=== PATIENT | female | born 1990 | race Caucasian/White ===

== ENCOUNTER 2023-07-06 07:31 | Inpatient (IN) | payer BC, SELFPAY ==
[2023-07-06] VITALS (134 sets, daily range): BP systolic 102–143; BP diastolic 56–93; PULSE 60–92; RESP 16–18; TEMP 36.4–36.9; O2SAT 89–100; BMI 47.5
[2023-07-06] MEDS: AMPICILLIN 2 GM in 0.9 % SODIUM CHLORIDE Mini-bag 100 ML IVPB (08:55)
[2023-07-06] MEDS: LACTATED RINGERS 1000 ML 1,000 ML 125 ML IV (08:55)
[2023-07-06] MEDS: OXYTOCIN 30 unit/500 ML in NS 30 UNIT/500 ML BAG IVPB (09:30)
[2023-07-06 10:10] LABS: Basophils Absolute Auto 0.01 K/uL (0.00-0.30); Basophils Percent Auto 0.1 % (0.0-3.0); Eosinophils Absolute Auto 0.03 K/uL (0.00-0.50); Eosinophils Percent Auto 0.3 % (0.0-7.0); Hematocrit 38.7 % (33.0-51.0); Hemoglobin* 12.6 gm/dL (12.0-16.0); Immature Granulocytes Abs Auto 0.01 K/uL (0.00-0.30); Immature Granulocytes Pct Auto 0.1 %; Lymphocytes Absolute Auto 2.17 K/uL (0.90-2.90); Lymphocytes Percent Auto 24.7 % (20-44); Mean Corpuscular HGB Conc 33 gm/dL (32-36); Mean Corpuscular Hemoglobin 31 pg (26-34); Mean Corpuscular Volume 95 fL (80-100); Monocytes Percent Auto 5.7 % (0.0-11.0); Neutrophils Absolute Auto 6.08 K/uL (1.7-7.0); Neutrophils Percent Auto 69.1 % (42.0-72.0); Platelet Count* 199 K/uL (140-440); RDW Coefficient of Variation % 12.9 % (11.5-15.5); Red Blood Count 4.09 m/uL (4.00-5.20)
[2023-07-06 10:13] LABS: Slide Review Reflex No
[2023-07-06] MEDS: AMPICILLIN 1 GM in 0.9 % SODIUM CHLORIDE Mini-bag 100 ML IVPB ×2 (13:06→17:13)
--- NOTE | 2023-07-06 14:32 | PM.OBHPLI ---
OB - H&P: HPI Labor/Induction History of Present Illness Date Seen: 07/06/23 Chief Complaint: The patient is a 32 year old 3 para 1011 at 40+4 weeks gestation by LMP and confirmed with first trimester US, who presents for IOL for maternal obesity with BMI 47. Chief complaint: Maternity Narrative: Marissa Landry is a 32 year old at 40+4 weeks by LMP and confirmed with 8 week US here for IOL for maternal obesity. She reports some bloody show since her cervical check on 07/03, but no regular contractions, no leaking fluid and baby has been active. Aside from BMI of 47, has otherwise been uncomplicated. History of Present Dating criteria: based on LMP care: good care Ultrasounds: normal 1st trimester US, normal mid trimester US and other (EFW at 36 weeks 3130g (71%)) Labs Blood type: O (+) positive Rubella: immune RPR/VDLR: nonreactive GBS status: positive HBsAG: negative Review of Systems Status of ROS: Reports: 6 or more systems reviewed and unremarkable except as noted in History and below OB - H&P: Exam Physical Exam: Vital signs: Temp Pulse BP Pulse Ox 98.1 F 84 126/77 100 07/06/23 13:09 07/06/23 13:47 07/06/23 13:47 07/06/23 14:30 Constitutional: Constitutional: no acute distress Routine HEENT Exam: Head: Present atraumatic Eye: Present EOMI and PERRL ENT: Present mucous membranes moist Detailed ENT Exam: Oral mucosa: Present moist Routine Neck Exam: Neck: Present full ROM Routine Respiratory Exam: Respiratory: Present CTA bilaterally Routine Cardiovascular Exam: Cardiovascular: RRR Routine Abdominal Exam: Abdominal: Present soft Comments: non tender Routine Exam: Perineum Description: Normal Detailed Labor and Delivery Exam: Patient Gravid: Yes Dilation (cm): 3 Effacement (%): 70 Cervix position: anterior Consistency: medium Cervical ripeness score: 7 Contraction frequency (min): 2 Tachysystole: No Contraction intensity: Mild Fetus (Single): Station: -1 Amniotic Membrane Status: AROM Amniotic Membrane Fluid Description: Meconium Stained Heart Rate Baseline: 140 Monitor Accelerations: Absent Monitor Decelerations: None Group Home Variability: Moderate (6-25) Routine Skin Exam: Present intact and normal turgor Routine Neurological Exam: Present alert, oriented X3 and CN II-XII intact Routine Psychiatric Exam: Present normal affect and normal thought process OB - Results Labs Labs: Short CBC 07/06/23 Range/Units 10:02 WBC 8.80 (4.50-11.00) K/uL Hgb 12.6 (12.0-16.0) gm/dL Hct 38.7 (33.0-51.0) % Plt Count 199 (140-440) K/uL OB - Problem Based A/P Additional Plan (1) : Status: Acute (2) Obesity: Status: Acute Plan Antibiotics started on arrival for +GBS. Pitocin per protocol with AROM for augmentation. Labor analgesia per patient. Anticipate . Second provider notified to be present for for meconium. Delivery/Labor/Induction Plan Plan: induction Induction method: per pitocin protocol
[2023-07-06] MEDS: LACTATED RINGERS 1000 ML 1,000 ML 119 ML IV ×2 (18:07→19:33)
--- NOTE | 2023-07-06 20:50 | SUR.ANES ---
Prior to being requested for an epidural, I had an extensive discussion with the patient and her partner regarding her prior experience with an epidural. Patient reported it being a difficult and unpleasant experience where 3 levels were attempted by 2 different providers before successful placement. She said the epidural worked well for labor analgesia. Patient reports that since that time she has had random sharp, shooting pain originating around the epidural insertion site. I discussed multiple labor analgesia options and the risks and benefits of each. We discussed it was likely that epidural placement would be technically challenging again given her first experience and upon my physical exam of her back. We discussed early placement of an epidural and that an epidural is an elective procedure that is her choice. Patient would like to start with natural childbirth and use nitrous. Upon being requested for an epidural and obtaining consent, I attempted insertion at 2 different levels without success. Prior to attempting at second level, when pressing on her back with my thumb, patient reported pain below where I had attempted. Decided to move up a level where patient did not report any pain. Patient requested that I stop after the 2nd level attempt. We had a discussion about other options (another provider attempting, ITN, or continuing with natural childbirth and nitrous). Patient decided to proceed with nitrous oxide and natural childbirth.
--- NOTE | 2023-07-06 21:09 | W.PM.VAGDEL1 ---
Procedure Delivery date: 07/06/23 Procedure Done: Global Delivery augmentation: rupture of membranes Delivery monitor: external FHT and external uterine Route of delivery: Laceration description: None Estimated blood loss (mL): 50 Anesthesia type: None Disposition: floor Narrative: The patient is a 32 year-old admitted on 07/06/2023 at 40 Weeks, 4 Days gestation for IOL for maternal obesity.? Cervical exam on admission was 2 cm/70 % effaced/-1 station with membranes intact in vertex presentation.? Contractions were rare.? heart rate demonstrated baseline 150 bpm with moderate variability, + accelerations, - decelerations; a category 1 tracing.?Antibiotics started on arrival for +GBS and pitocin was then started. AROM occurred at 1416 with meconium stained fluid. ? Labor Analgesia:? none ? Pitocin:? yes ? Labor onset:? 1804 ? Complete:? 2041 ? Pushing:? 2041 ? heart tones during second stage were category 2. ? At 2045 a viable female delivered in vertex OA presentation over intact perineum via spontaneous vaginal delivery.? Infant was placed on maternal abdomen.? Cord was clamped and cut quickly after delivery due to poor respiratory effort and meconium. Infant brought to the warmer where she was immediately vigorous.? Nose and mouth were bulb suctioned.? weight pending.? 8 at 1 minute and 9 at 5 minutes.? Shoulder dystocia: no.? Nuchal cord: no. ? Placenta delivered spontaneously and complete at 2050 with a 3 vessel cord. ? Mother and infant were stable after delivery. ? Lacerations:? none. ? Blood loss: 50 mL. Blood loss measurement type: QBL ? Sponge and needles counts are correct. [place] Infant Gender: Female presentation: vertex Placental Delivery Description: Spontaneous Cord Description: 3 Vessels
[2023-07-06] MEDS: IBUPROFEN 600 MG TABLET PO (21:24)
[2023-07-07 03:44] VITALS: BP 119/70; PULSE 71; RESP 18; TEMP 36.6; O2SAT 98
[2023-07-07] MEDS: IBUPROFEN 600 MG TABLET PO ×3 (03:46→19:00)
[2023-07-07] MEDS: ACETAMINOPHEN 500 MG TABLET 1000 MG PO ×3 (03:46→16:52)
[2023-07-07 07:17] LABS: Hemoglobin* 11.4 gm/dL (12.0-16.0)
[2023-07-07 08:00] VITALS: BP 106/71; PULSE 60; RESP 16; TEMP 36.6; O2SAT 98
--- NOTE | 2023-07-07 08:12 | P.OBPN_ITS ---
OB - PN:Subj Subjective Date Seen: 07/07/23 Interval history: Doing fairly well this morning. Did develop headache which she feels was due to multiple epidural attempts. has been reevaluated by anesthesia. feeling better with use of pain medications. No dizziness, vision changes, swelling, RUQ abdominal pain. Feels like bleeding has been appropriate. Working on . OB - PN: Obj Exam Physical Exam: Vital signs: Temp Pulse Resp BP Pulse Ox O2 Del Method 97.9 F 71 18 119/70 98 Room Air 07/07/23 03:44 07/07/23 03:44 07/07/23 03:44 07/07/23 03:44 07/07/23 03:44 07/07/23 03:44 Narrative: Gen: alert, pleasant, NAD Resp: CTA b/l; breathing comfortably on room air Heart: RRR, no murmurs Abd: soft, nontender. fundus is firm. MSK: no LE edema OB - PN: Obj Data Labs Labs: Laboratory Results - last 24 hr 07/06/23 07/07/23 10:02 06:26 WBC 8.80 RBC 4.09 Hgb 12.6 11.4 L Hct 38.7 MCV 95 MCH 31 MCHC 33 RDW Coeff of Elizabeth 12.9 Plt Count 199 Neut % (Auto) 69.1 Lymph % (Auto) 24.7 [place] % (Auto) 5.7 Eos % (Auto) 0.3 Baso % (Auto) 0.1 Neut # (Auto) 6.08 Lymph # (Auto) 2.17 [place] # (Auto) 0.50 Eos # (Auto) 0.03 Baso # (Auto) 0.01 Abs Immat Gran (auto) 0.01 Imm/Tot Granulo (auto) 0.1 Blood Type O Positive Antibody Screen NEGATIVE OB - PN: A/P Delivery Assessment and Plan (1) : Status: Resolved (2) Obesity: Status: Acute Plan day: 1 Plan: routine care Comments: Anticipate discharge home tomorrow. Headache improving with use of analgesics. Blood pressures have been WNL - did have two mildly elevated pressures 1 hour apart yesterday during labor (132/93, 143/73). Low threshold to further evaluate with labs if headaches worsen or blood pressures rise.
--- NOTE | 2023-07-07 09:40 | PM.ANPOST ---
Post Anesthesia Note Post Anesthesia Note Patient seen: Inpatient Respiratory Status: adequate Cardiovascular Status: adequate Mental Status: baseline Pain: adequate (Patient reported a headache overnight that improved with laying down. It has improved since then and is currently a dull ache that does not change with position. Discussed with patient and her provider that is unlikely a spinal headache since we were not able to get into epidural space.) Temp: baseline Anesthetic awareness: N/A Complications: none Follow care: none
[2023-07-07] MEDS: DOCUSATE SODIUM 100 MG CAPSULE PO (10:23)
[2023-07-07 11:23] VITALS: BP 115/79; PULSE 75; RESP 16; TEMP 36.8; O2SAT 99
[2023-07-07] MEDS: OXYCODONE 5 MG TABLET PO (17:35)
[2023-07-07 17:40] VITALS: BP 112/69; PULSE 71; RESP 17; TEMP 36.9; O2SAT 98
[2023-07-07] MEDS: LIDOCAINE 5% PATCH 1 PATCH TRANSDERMA (18:36)
[2023-07-07 20:31] VITALS: BP 138/85; PULSE 81; RESP 16; TEMP 36.4; O2SAT 98
[2023-07-07 21:14] LABS: Hematocrit 37.5 % (33.0-51.0); Hemoglobin* 12.2 gm/dL (12.0-16.0); Mean Corpuscular HGB Conc 33 gm/dL (32-36); Mean Corpuscular Hemoglobin 31 pg (26-34); Mean Corpuscular Volume 95 fL (80-100); Platelet Count* 182 K/uL (140-440); Red Blood Count 3.93 m/uL (4.00-5.20); White Blood Count* 9.45 K/uL (4.50-11.00)
[2023-07-07 21:18] LABS: Slide Review Reflex No
[2023-07-07 21:30] LABS: Alanine Aminotransferase* 23 U/L (4-35); Aspartate Amino Transferase* 29 U/L (12-35); Creatinine* 0.6 mg/dL (0.5-1.5); Est. Creatinine Clearance* 148.26; Estimated Glomerular Filt Rate 124 ml/min
[2023-07-07] MEDS: CYCLOBENZAPRINE HCL 10 MG TABLET PO (21:33)
[2023-07-08 00:47] VITALS: BP 117/81; PULSE 63; RESP 18; TEMP 36.6; O2SAT 98
[2023-07-08 00:57] LABS: Rapid Plasma Reagin (RPR) Non Reactive (Non Reactive)
[2023-07-08] MEDS: ACETAMINOPHEN 500 MG TABLET 1000 MG PO ×2 (01:03→08:57)
[2023-07-08] MEDS: IBUPROFEN 600 MG TABLET PO ×2 (01:04→08:56)
[2023-07-08 02:25] LABS: Total Protein Urine 15 mg/dL
[2023-07-08 02:26] LABS: Creatinine Urine 106.5 mg/dL
[2023-07-08] MEDS: CYCLOBENZAPRINE HCL 10 MG TABLET PO (04:04)
--- NOTE | 2023-07-08 08:16 | P.DS_ITS ---
DS: Providers Provider Date Seen: 07/08/23 Date of admission: 07/06/23 07:31 Primary care physician: Christine Martinez MD Admitting Clinician: Christine Martinez MD Attending Physician on discharge: Christine Martinez MD Date of Discharge: 07/08/23 DS: Diagnosis Discharge Diagnosis (1) Status post normal vaginal delivery: Status: Acute Problem details: Delivered at 40w4d; no tears. (2) Back pain: Status: Acute Exam Narrative: Exam Narrative: Gen: alert, pleasant, NAD Heart: RRR, no murmurs Lungs: CTA b/l MSK: paraspinal muscle tenderness to palpation b/l in thoracic and lumbar spine. Piriformis muscle tenderness to palpation. No saddle anesthesia. Skin: bruising over lumbar spine Const: Vital Signs, click to edit/add: Vital Signs - 24 hr 07/07/23 11:23 07/07/23 17:40 07/07/23 20:31 Temperature 98.3 F 98.4 F 97.5 F L Pulse Rate [Pulse Oximeter] 75 71 81 Respiratory Rate 16 17 16 Blood Pressure [Ri ght Arm] 115/79 112/69 138/85 Pulse Oximetry 99 98 98 Oxygen Delivery Me thod Room Air Room Air Room Air 07/08/23 00:47 Temperature 97.8 F Pulse Rate [Pulse Oximeter] 63 Respiratory Rate 18 Blood Pressure [Ri ght Arm] 117/81 Pulse Oximetry 98 Oxygen Delivery Me thod Room Air OB - DS: Summary Hospital Course Hospital Course: The patient is a 32 year old G 3 P 2 at 40.4 weeks gestation that was admitted to the Center on 07/06/23 for IOL secondary to post-dates . She had an uncomplicated vaginal delivery. She delivered a viable female . She is breast feeding. the patient has struggled with headache and back pain. Pre-eclampsia labs were negative. Back pain thought to be due to unsuccessful attempts at epidural placement and musculoskeletal pain which patient reports she had been struggling with prior to delivery as well. Pain improves with use of ice, Flexeril, and ibuprofen. Peripartum Data delivery method: Vaginal Laceration description: None complications: spinal headache (vs other unspecified headache) Gender: Female Status at Discharge Functional status at discharge: independent ambulation Time Spent with Patient Time attestation: Total time spent providing and/or coordinating discharge services: Time spent: Less than 30 minutes Discharge Plan Discharge Disposition: Home, Self-Care Date of Admission: 07/06/23 07:31 Primary Care Provider: Christine Martinez Condition: Stable Anticipated Discharge Date/Time: 07/08/23 09:04 Discharge Medications: New cyclobenzaprine 10 mg Tablet 10 mg PO TID PRN (Reason: Muscle Pain) Qty: 21 0RF ibuprofen 600 mg Tablet 600 mg PO Q6H PRNQty: 28 0RF Continued docosahexaenoic acid [ DHA] 1 cap PO DAILY Discharge Orders: Discharge Order (Routine); Ordered 07/08/23 Ordered By: Maria Elena Leger Patient Education: Vaginal Delivery (DC), OB Vaginal/Breast Feeding Follow Up Appointments: Christine Martinez MD [Primary Care Provider] - Forms: [employer] Info Instructions Discharge Comments: Follow up for routine post- visit at 6 weeks or sooner if needed for any other concerns
[2023-07-08] MEDS: DOCUSATE SODIUM 100 MG CAPSULE PO (08:57)
[2023-07-08 09:22] VITALS: BP 114/82; PULSE 82; TEMP 36.7; O2SAT 99
== END 2023-07-08 10:43 | disposition home or self-care (01) | DRG 560 ==
PROVIDERS: Family Medicine; Admitting Provider Family Medicine; PCP Family Medicine; Visit Provider Family Medicine
DX: O99.214 Obesity complicating childbirth (principal); E66.9 Obesity, unspecified; O99.824 Streptococcus B carrier state complicating childbirth; O77.0 Labor and delivery complicated by meconium in amniotic fluid; O48.0 Post-term pregnancy; O90.89 Other complications of the puerperium, not elsewhere classified; M54.9 Dorsalgia, unspecified; R51.9 Headache, unspecified; Z3A.40 40 weeks gestation of pregnancy; Z37.0 Single live birth
CPT/HCPCS: 36415; 82565; 82570; 84156; 84450; 84460; 85018; 85025; 85027; 86592; 86850; 86900; 86901; A9270; J0290; J2371; J7120

== ENCOUNTER 2023-09-06 20:06 | Emergency (ER) | payer BC, SELFPAY ==
[2023-09-06 20:12] VITALS: BP 138/86; PULSE 72; RESP 16; TEMP 36.1; O2SAT 100; BMI 41.6
--- NOTE | 2023-09-06 20:58 | ED_ITS ---
HPI - General Adult General Date Seen: 09/06/23 Chief complaint: Vaginal Bleeding Stated complaint: bleeding after giving Time Seen by Provider: 09/06/23 20:43 Source: patient Mode of arrival: ambulatory Limitations: no limitations History of Present Illness HPI narrative: Patient is a 32-year-old female who is nine weeks who presents with vaginal bleeding. She is going through three or four pads per day. She is not passing any large clots but has passed a couple of small clots. 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 Tonight she felt we ak and presyncopal prompting her visit to the ER. She has had no fevers or chills. At her six week visit she was started a progesterone only OCP. She has not missed any days. She is breast-feeding. She does not notice uterine contractions with pumping. She does not breast feed directly. She has been scheduled for a pelvic ultrasound in four days presumably to look for retained placenta. She has had no heavy bleeding and did not have a traumatic or difficult delivery. No issues with delivery of placenta. Related Data Home Medications ?Medication ?Instructions ?Recorded ?Confirmed norethindrone (contraceptive) 0.35 0.35 mg PO DAILY 09/06/23 09/06/23 mg tablet Allergies Allergy/AdvReac Type Severity Reaction Status Date / Time amitriptyline AdvReac Verified 09/06/23 20:17 Review of Systems Narrative: Review of systems is outlined above otherwise noted to be negative. [facility] Medical History (Updated 09/06/23 @ 22:05 by Vamsi Mckeon MD) Back pain ?M54.9 - Dorsalgia, unspecified (ICD-10) Status post normal vaginal delivery Vaginal delivery ?O80 - Encounter for full-term uncomplicated delivery (ICD-10) ?Z34.90 - Encounter for supervision of normal , unspecified, unspecified trimester (ICD-10) Endometriosis determined by laparoscopy ?N80.9 - Endometriosis, unspecified (ICD-10) Surgical History (Updated 07/06/23 @ 14:38 by Christine Martinez MD) History of endoscopy ?Z98.890 - Other specified postprocedural states (ICD-10) History of tonsillectomy ?Z90.89 - Acquired absence of other organs (ICD-10) H/O colonoscopy ?Z98.890 - Other specified postprocedural states (ICD-10) History of cholecystectomy ?Z90.49 - Acquired absence of other specified parts of digestive tract (ICD- 10) Social History What is your current living situation?: I presently have a place to live Problems where you live: no known problems In the past 12 months, utilities in danger of being shut off: no In past 12 months, lack of transportation kept you from medical appts, meetings, work, or getting things needed for daily living: no In the past 12 mos, have been you worried that your food would run out before you had money to buy more?: never true In the past 12 mos, the food you bought just didn't last and you didn't have money to buy more?: never true Smoking Status: Never smoker Do you use any of these nicotine containing products: None How often do you have a drink containing alcohol: never AUDIT-C Alcohol total score: 0 Non-prescribed substance use: denies use How often does anyone, including family, friends and others, physically hurt you : never How often does anyone, including family, friends and others, insult or talk down to you: never How often does anyone, including family, friends and others, threaten you with harm: never How often does anyone, including family, friends and others, scream or curse at you: never Exam Narrative: Exam Narrative: Vitals noted. She appears well. HEENT: Conjunctiva clear. Posterior pharynx is clear without erythema or exudate. Neck is supple without adenopathy, thyromegaly. Lungs: Clear to auscultation in all alaniz. No wheezes, rales, rhonchi. Heart: Regular rate and rhythm without murmur. Abdomen: Obese, Soft and nontender. No guarding, rigidity, rebound. Bowel sounds are normal. No palpable masses. Extremities: No cyanosis or edema. Good distal pulses. Skin: No abnormalities noted of the exposed skin. Neurologic: Awake, alert, fully oriented. Neurologic exam is nonfocal. Const: Vital Signs, click to edit/add: Vital Signs - 24 hr 09/06/23 20:12 Temperature 96.9 F L Pulse Rate [Pulse Oximeter] 72 Respiratory Rate 16 Blood Pressure [Ri ght Upper Arm] 138/86 Pulse Oximetry 100 Oxygen Delivery Me thod Room Air Course Course ED Course: Patient seen and examined. She is lightly stable. Labs are ordered. No indication for emergency pelvic ultrasound. Reevaluation(s) Reevaluation #1: CBC is normal with a hemoglobin of 12.6. Basic metabolic panel is also normal. Patient is given the options of watchful waiting and following through with her ultrasound next week OR treating her with a course of Provera 10 mg daily for seven days to see if that will slow the bleeding in provide a more organized withdrawal bleed. She opted for the former. Vital Signs Vital signs: Initial Vital Signs Temperature 96.9 F L 09/06/23 20:12 Temperature Source Temporal Artery Scan 09/06/23 20:12 Pulse Rate 72 09/06/23 20:12 Respiratory Rate 16 09/06/23 20:12 Blood Pressure 138/86 09/06/23 20:12 Blood Pressure Mean 103 09/06/23 20:12 Blood Pressure Position Sitting 09/06/23 20:12 Pulse Oximetry 100 09/06/23 20:12 Oxygen Delivery Method Room Air 09/06/23 20:12 Vital Signs Temperature 96.9 F L 09/06/23 20:12 Pulse Rate 72 09/06/23 20:12 Respiratory Rate 16 09/06/23 20:12 Blood Pressure 138/86 09/06/23 20:12 Pulse Oximetry 100 09/06/23 20:12 Oxygen Delivery Method Room Air 09/06/23 20:12 Temperature 96.9 F L 09/06/23 20:12 Pulse Rate 72 09/06/23 20:12 Respiratory Rate 16 09/06/23 20:12 Blood Pressure 138/86 09/06/23 20:12 Pulse Oximetry 100 09/06/23 20:12 Oxygen Delivery Method Room Air 09/06/23 20:12 Medical Decision Making Lab Data Labs: Lab Results 09/06/23 Range/Units 21:27 WBC 9.77 (4.50-11.00) K/uL RBC 4.16 (4.00-5.20) m/uL Hgb 12.6 (12.0-16.0) gm/dL Hct 39.6 (33.0-51.0) % MCV 95 (80-100) fL MCH 30 (26-34) pg MCHC 32 (32-36) gm/dL RDW Coeff of [place] 12.7 (11.5-15.5) % Plt Count 226 (140-440) K/uL Neut % (Auto) 53.4 (42.0-72.0) % Lymph % (Auto) 38.3 (20-44) % [place] % (Auto) 6.7 (0.0-11.0) % Eos % (Auto) 1.4 (0.0-7.0) % Baso % (Auto) 0.1 (0.0-3.0) % Neut # (Auto) 5.22 (1.7-7.0) K/uL Lymph # (Auto) 3.74 H (0.90-2.90) K/uL [place] # (Auto) 0.70 (0.00-0.90) K/UL Eos # (Auto) 0.14 (0.00-0.50) K/uL Baso # (Auto) 0.01 (0.00-0.30) K/uL Abs Immat Gran (auto) 0.01 (0.00-0.30) K/uL Imm/Tot Granulo (auto) 0.1 % Sodium 139 (135-149) mmol/L Potassium 4.0 (3.6-5.1) mmol/L Chloride 103 (96-114) mmol/L Carbon Dioxide 30 (20-32) mmol/L Anion Gap 6 L (7-15) mEq/L BUN 16 (5-24) mg/dL Creatinine 0.6 (0.5-1.5) mg/dL Estimated Creat Clear 148.26 Estimated GFR 124 ml/min Glucose 89 (60-115) mg/dL Calcium 9.3 (8.4-10.6) mg/dL Discharge Plan Discharge Clinical Impression: bleeding Patient Disposition: Home, Self-Care Condition: Stable Additional Instructions: Continue your OCPs. Keep her follow-up appointment next Sunday for the ultrasound. Return to the emergency department for heavy bleeding or passage of large clots. Prescriptions: No Action norethindrone (contraceptive) 0.35 mg tablet 0.35 mg PO DAILY Follow Up/Referrals: Christine Martinez MD [Primary Care Provider] - Stand Alone Forms: [employer] Info Instructions
[2023-09-06 21:30] LABS: White Blood Count* 9.77 K/uL (4.50-11.00)
[2023-09-06 21:31] LABS: Basophils Absolute Auto 0.01 K/uL (0.00-0.30); Basophils Percent Auto 0.1 % (0.0-3.0); Eosinophils Absolute Auto 0.14 K/uL (0.00-0.50); Eosinophils Percent Auto 1.4 % (0.0-7.0); Hematocrit 39.6 % (33.0-51.0); Hemoglobin* 12.6 gm/dL (12.0-16.0); Immature Granulocytes Abs Auto 0.01 K/uL (0.00-0.30); Immature Granulocytes Pct Auto 0.1 %; Lymphocytes Absolute Auto 3.74 K/uL (0.90-2.90); Lymphocytes Percent Auto 38.3 % (20-44); Mean Corpuscular HGB Conc 32 gm/dL (32-36); Mean Corpuscular Hemoglobin 30 pg (26-34); Mean Corpuscular Volume 95 fL (80-100); Monocytes Percent Auto 6.7 % (0.0-11.0); Neutrophils Absolute Auto 5.22 K/uL (1.7-7.0); Neutrophils Percent Auto 53.4 % (42.0-72.0); Platelet Count* 226 K/uL (140-440); RDW Coefficient of Variation % 12.7 % (11.5-15.5); Red Blood Count 4.16 m/uL (4.00-5.20)
[2023-09-06 21:32] LABS: Slide Review Reflex No
--- OUTSIDE RECORDS SUMMARY | 2023-09-06 21:40 | XMS_ITS | Clinical Summary ---
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 Active acetaminophen (TYLENOL EXTRA STRGTH) 500 mg tabletIndications:N (normal spontaneous vaginal delivery) Take 2 Tablets by mouth every 6 hours if needed. Max acetaminophen dose: 4000mg in 24 hrs. 100 Tablet 04/14/2020 Active Breast Pump PurchaseIndications :Care and examination of lactating mother Electric breast pump for home use. Gestational age at delivery: 40 weeks. Reason for need: return to work. Length of need: 99 months (lifetime use) 1 Each 03/09/2023 Active norethindrone, Contraceptive, (MICRONOR, 28,) 0.35 mg tabletIndications:E ncounter for initial prescription of contraceptive pills Take 1 Tablet (0.35 mg) by mouth once daily. 84 Tablet 3 08/16/2023 Active Active Problems Problem Noted Date Diagnosed Date 02/12/2023 Overview: Estimated Date of Delivery: 07/02/23 Patient's last menstrual period was 09/25/2022 (exact date). Transfer of care from [facility] at 23wks GBS- Vaginal/Rectal OB Strep B PCR Date Value Ref Range Status 06/04/2023 Positive (A) Final Comment: If susceptibility is needed due to penicillin allergy, contact lab. 28wk labs- GLUCOSE,GESTATIONAL Date Value Ref Range Status 04/09/2023 96 70 - 139 mg/dL Final HEMOGLOBIN Date Value Ref Range Status 04/09/2023 12.6 12.0 - 16.0 g/dL Final TREPONEMA PALLIDUM Date Value Ref Range Status 04/09/2023 Non-Reactive Non-Reactive Final Last Tdap- 04/09/23 Last Flu vaccine- 01/15/23 OB Labs: done at [facility] 11/21/22 O pos AB screen neg Trep neg HIV neg HCV neg HBS neg Rubella immune (tested 04/08/2022) Hgb 12.8 Plt 238 Chlam/GC neg Allergies Allergen Reactions Amitriptyline Other - Describe In Comment Field Increased depression Rabeprazole Hives (Aciphex) Zantac [Ranitidine] Hives Zithromax [Azithromycin] Nausea And Vomiting OB History Para Term AB Living 3 1 1 0 1 1 SAB IAB Ectopic Multiple Live Births 1 0 0 0 1 # Outcome Date GA Lbr Tristen/2nd Weight Sex Delivery Anes PTL Lv 3 Current 2 Term 04/12/20 41w0d 10:00 / 02:05 3.59 kg (7 lb 14.6 oz) M VAGINAL YANDEL IV MEDS, EPIDURAL MARY Name: NICOLÁS SANTIAGO Apgar1: 7 Apgar5: 9 1 SAB Past Medical History: . Date Abdominal pain with lysis of adhesions Anxiety associated with depression Constipation Dysmenorrhea GERD (gastroesophageal reflux disease) Migraine intermittent Plantar fascia syndrome Past Surgical History: . Laterality Date CHOLECYSTECTOMY 03/2009 COLONOSCOPY W/ POLYPECTOMY N/A 04/09/2018 ENDOSCOPY GI ESOPHAGOGASTRODUODENOSCOPY WITH BIOPSY N/A 04/09/2018 LAPAROSCOPIC ENDOMETRIOSIS FULGURATION 2014 LYSIS OF ADHESIONS TONSIL AND ADENOIDECTOMY WISDOM TEETH EXTRACTION Problems (from 02/12/23 to present) No problems associated with this episode. Christine B Kapaun, RN ....02/12/2023 11:47 AM (normal spontaneous vaginal delivery) 04/12 Resolved Problems Problem Noted Date Diagnosed Date Resolved Date 41 weeks gestation of 04/12/2020 03/22/2023 Encounter for supervision of normal , unspecified, unspecified trimester 09/11/2019 03/22/2023 Overview: G 1 P 0 RADHA: April 05, 2020 by LMP and FTU FOB: Jose Rubella immune, Rh O positive anatomy scan: Normal but limited on 12/18, follow up normal OGTT: 101 Influenza on: Declined. Tdap on: 03/08/2020 GBS: Negative. COVID Testing: PP contraception plans: Issues: 1. History of COVID positive Encounters Date Type Department Care Team Description 08/16/2023 1:35 PM CDT Office Visit [facility] [address] [place] [address] Christine Martinez MD Care (6 week/Talk about birh control, thinking pill) 08/16/2023 Travel 07/08/2023 Orders Only [facility] Scanner 1 scan: (1-Ord) [facility], MULTIPLE LABS, 07/08/2023 07/07/2023 Orders Only [facility] Scanner 1 scan: (1-Ord) [facility], MULTIPLE LABS, 07/07/2023 07/07/2023 Orders Only [facility] Scanner 1 scan: (1-Ord) [facility], HGB, 07/07/2023 07/06/2023 Orders Only [facility] Scanner 1 scan: (1-Ord) [facility], CLINICAL LABORATORY REPORT, 07/06/2023 07/06/2023 Orders Only [facility] Scanner 1 scan: (1-Ord) [facility], LAB RESULTS, 07/06/2023 07/04/2023 3:15 PM CDT OB Encounter [facility] [address] [place] [address] Christine Martinez MD Care (40 w 2 d/) 07/04/2023 1:55 PM CDT - 07/04/2023 11:59 PM CDT Hospital Encounter [facility] [address] [place] [address] Encounter for supervision of other normal in third trimester; Obesity in 07/04/2023 Travel 06/25/2023 10:20 AM CDT OB Encounter [facility] [address] [address] Christine Martinez MD Care (39wks cramping most of the day sunday and a little bit on sunday) 06/25/2023 9:00 AM CDT Ancillary Procedure [facility] [address] [address] 06/25/2023 Travel 06/18/2023 9:30 AM CDT OB Encounter [facility] [address] [address] Christine Martinez MD Care (38 WKS/cramping and a little spotting yesterday would like to be checked) 06/18/2023 7:30 AM CDT Ancillary Procedure [facility] [address] [address] 06/18/2023 Travel 06/11/2023 9:30 AM CDT OB Encounter [facility] [address] [address] Christine Martinez MD Care (37wks) 06/11/2023 8:15 AM CDT [facility]illary [facility] [id number] 06/11/2023 Travel from Last 3 Months Immunizations Name Administration Dates Next Due DTP 06/23/1993,01/31/1993 Hepatitis A (Adult) 03/05/2007,02/24/2007 Hepatitis A (Peds) 12/26/2007,03/05/2007 Hib Conjugate, Unspecified 06/23/1993 Human Papilloma Virus Vaccine 07/02/2008 ,07/03/2007,03/05/2007,12/20 Influenza, IIV3 (Age >=3 years) 12/10/2014,11/02,11/11/2008 Influenza, IIV4 01/15/2023,11/10/2015 MMR 01/05/2003 MMRV 01/05/2003 Meningococcal Mcv4, Unspecif ied Formulation 02/01/2009,07/03/2007 Oral Polio Vaccine 06/23/1993,01/31/1993 Td (Age >=7 Years) 05/30/2005 Td, Preservative Free (age >= 7 Years) 6 Tdap 04/09/2023,03/08/2020,10/18/2011 Family History Medical History Relation Name Comments Good Health Brother Depression Father Hyperlipidemia Father Hypertension Father Depression Mother Thyroid Disease Mother Cancer-colon Paternal Grandmother Depression Sister Relation Name Status Comments Brother Father Mother Paternal Grandmother Sister Social History Tobacco Use Types Packs/Day Years Used Date Smoking Tobacco: Former Smokeless Tobacco: Never Comments:quit 4 months ago a fter trying it Alcohol Use Standard Drinks/Week Comments No 0 (1 standard drink = 0.6 oz pur e alcohol) very little PHQ-2 Answer Date Recorded PHQ-2 TOTAL SCORE 2 08/16/2023 Social Connections Answer Date Recorded Frequency of Communication with Friends and Fami ly 0 03/09/2023 Financial Resource Strain Answer Date R ecorded Difficulty of Paying Living Expenses 3 03/09/2023 Difficulty of Paying Living Expenses Not on file 03/09/2023 Food Insecurity Answer Date Recorded Worried About Running Out of Food in the Last Ye ar 1 03/09/2023 Transportation Needs Answer Date Record ed Lack of Transportation (Medical) 1 03/09/2023 Housing Stability Answer Date Recorded Unable to Pay for Housing in the Last Year 1 03/09/2023 Sex and Gender Information Value Date Recorded Sex Assigned at Not on file Gender Identity Not on file Sexual Orientation Not on file Obstetrics History Para Term AB IAB SAB Ectopic Multiple Livin g Live Births 3 2 2 1 1 0 0 2 2 Date Outcome GA Total Labor Labor/2nd/3rd Weight Sex Type Anes PTL Mary A1 A5 Name Clin SAB 2020 Term 41w 0d 12h 10m 10h 00m/2h 05m/0h 05m 3.59 kg (7 lb 14.6 oz) M VAGINA L YANDEL IV Meds,E pidura l Livin g 7 9 NICOLÁS SANTIAGO, MARCO Rachel Complications:None Delivery Location:Hospital ( [facility]) 2023 Term 40w 4d F VAGINA L YANDEL Epidur al Livin g 8 9 Tappe r Complications:Meconium in am niotic fluid Last Filed Vital Signs Vital Sign Reading Time Taken Comments Blood Pressure 114/78 08/16/2023 1:26 PM CDT Pulse 84 08/16/2023 1:26 PM CDT Temperature 36.7 ??C (98 ??F) 04/14/2020 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 Respiratory Rate 18 04/14/2020 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 Oxygen Saturation 98% 08/16/2023 1:26 PM CDT Inhaled Oxygen Concentration - - Weight 137.3 kg (302 lb 9.6 oz) 08/16/2023 1:26 PM CDT Height 175.3 cm (5' 9) 08/16/2023 1:26 PM CDT Body Mass Index 44.69 08/16/2023 1:26 PM CDT Plan of Treatment Upcoming Encounters Date Type Department Care Team (Late st Contact Info) Description 09/11/2023 10:30 AM CDT Ancillary Procedure [facility] [address] [place] [address] 09/11/2023 12:00 PM CDT Orders Only [facility] [address] [place] [address] Lab, [facility] Due Date Last Done Comments Hepatitis C screening for age 18-79 2010 COVID-19 vaccine series ( season) 2022 Influenza for age 9-49 10/07/2023 3, 11/10/2015, 12/10/2014, Additional history exists BMI (ht and wt on same day) for age 18+ 08/15/2024 08/16/2023, 03/09/2023, 02/12/2023 Depression screening for age 12+ 08/15/2024 08/16/2023 Pap test for age 21-65 11/21/2025 3 (Verified in Care Everywhere or Patient Record) Tetanus booster 04/08/2033 04/09/2023, 02/2020, 10/18/2011, Additional history exists HIV for age 15-65 Completed 09/11/2019 Tdap Completed 04/09/2023, 02/2020, 10/18/2011 Pneumococcal series for age 6-64 Aged Out No longer eligible based on patient's age to complete this topic Procedures Procedure Name Priority Date/Time Associated Diagnosis Comments SCAN-LABORATORY REPORT 07/08/2023 12:00 AM CDT SCAN-LABORATORY REPORT 07/07/2023 12:00 AM CDT SCAN-LABORATORY REPORT 07/07/2023 12:00 AM CDT SCAN-LABORATORY REPORT 07/06/2023 12:00 AM CDT SCAN-LABORATORY REPORT 07/06/2023 12:00 AM CDT US OB BIOPHYSICAL PROFILE SINGLE WO NST STAT 07/04/2023 2:43 PM CDT Encounter for supervision of other normal in third trimester Obesity in US OB BIOPHYSICAL PROFILE SINGLE WO NST Routine 06/25/2023 9:22 AM CDT Encounter for supervision of other normal in third trimester Obesity in US OB BIOPHYSICAL PROFILE SINGLE WO NST Routine 06/18/2023 7:56 AM CDT Encounter for supervision of other normal in third trimester Obesity in US OB BIOPHYSICAL PROFILE SINGLE WO NST Routine 06/11/2023 8:39 AM CDT Encounter for supervision of other normal in third trimester Obesity in HIV EXTERNAL Routine 09/11/2019 from Last 3 Months or Most Recently Relevant to Health Maintenance Results * SCAN-LABORATORY REPORT (07/08/2023 12:00 AM CDT) Only the most recent of5 resultswithin the time period is included. Scanner OTHER * US OB BIOPHYSICAL PROFILE SINGLE WO NST (07/04/2023 2:43 PM CDT) Only the most recent of4 resultswithin the time period is included. Anatomical Region Laterality Modality Ultrasound 07/04/2023 3:02 PM CDT Impressions 07/04/2023 3:02 PM CDT Single intrauterine gestation without complication seen. Biophysical profile score is 8/8. Dictated by Addie Loredo MD @ 07/04/2023 3:02:41 PM (Electronically Signed) Narrative 07/04/2023 3:02 PM CDT For Patients: ??As a result of the Cures Act, medical imaging exams and procedure reports are released immediately into your electronic medical record. ??You may view this report before your referring provider. ??If you have questions, please contact your health care provider. INDICATION: Encounter for supervision of , obesity COMPARISON: 06/25/2023 TECHNIQUE: Grayscale, color Doppler, and duplex Doppler ultrasound of the gravid uterus, fetus, and umbilical artery. FINDINGS: Provided gestational age: 40 weeks 2 days Single intrauterine gestation in vertex presentation. The heart rate is 132 beats per minute and regular. The placenta is anterior. Appears mature. The umbilical artery has an arterial waveform with continuous forward diastolic flow. The SD ratio is 2.0 which is normal for gestational age. The amniotic fluid index is 8.6 centimeters. The deepest vertical pocket is 3.5 centimeters. tone: 2/2 breathin/2 movement: 2/2 Amniotic fluid volume: 2/2 Biophysical profile score: 8/8 The maternal cervix is not well evaluated due to shadowing from the calvarium. Procedure Note Addie Loredo MD - 07/04/2023 For Patients: As a result of the Cures Act, medical imagingexams and procedure reports are released immediately into your electronicmedical record. You may view this report before your referring provider.If you have questions, please contact your health care provider. INDICATION: Encounter for supervision of , obesity COMPARISON: 06/25/2023 TECHNIQUE: Grayscale, color Doppler, and duplex Doppler ultrasound of the graviduterus, fetus, and umbilical artery. FINDINGS: Provided gestational age: 40 weeks 2 days Single intrauterine gestation in vertex presentation. The heart rateis 132 beats per minute and regular. The placenta is anterior. Appears mature. The umbilical artery has anarterial waveform with continuous forward diastolic flow. The SD ratio is2.0 which is normal for gestational age. The amniotic fluid index is 8.6 centimeters. The deepest vertical pocketis 3.5 centimeters. tone: 2/2 breathin/2 movement: 2/2 Amniotic fluid volume: 2/2 Biophysical profile score: 8/8 The maternal cervix is not well evaluated due to shadowing from the fetalcalvarium. IMPRESSION: Single intrauterine gestation without complication seen. Biophysicalprofile score is 8/8. Dictated by Addie Loredo MD @ 07/04/2023 3:02:41 PM (Electronically Signed) Christine Martinez MD US * HIV EXTERNAL (09/11/2019) EXTERNAL HIV Negative [facility] Blood BLOOD SPECIMEN / Unknown Kit Max MD LABORATORY [facility] [address] [place] [address], from Last 3 Months or Most Recently Relevant to Health Maintenance Advance Directives * Full Code (Latest Code Status on File) Date Activated Date Inactivated Comments 04/11/2020 10:40 PM 04/14/2020 12:07 PM Question Answer Comments Code Status Discussion: Discussed * Full Code Date Activated Date Inactivated Comments 04/11/2020 5:11 PM 04/11/2020 10:40 PM Question Answer Comments Code Status Discussion: Discussed * Full Code Date Activated Date Inactivated Comments 05/27/2018 6:50 AM 05/27/2018 1:16 PM Question Answer Comments Code Status Discussion: Discussed * Full Code Date Activated Date Inactivated Comments 04/09/2018 9:03 AM 04/09/2018 2:03 PM * Full Code Date Activated Date Inactivated Comments 10/03/2017 6:20 AM 10/03/2017 2:00 PM Question Answer Comments Code Status Discussion: Discussed Care Teams 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
--- OUTSIDE RECORDS SUMMARY | 2023-09-06 21:40 | XMS_ITS | Clinical Summary ---
Author Organization [facility] Address [address] [place] [address] Care Team Providers Care Real Estate Marketing Coordinator Name Role Phone Rosi Sheth APRN C.N.PGriselda Primary Care Provi danis Source Comments Patient records contain information from all sites at [facility]. For routine questions regarding patient records, call [phone] during business hours, M-F 8:00 AM - 5:00 PM Central Time. Record requests for emergency care only can be directed to [phone] at any time.[facility] Allergies Active Allergy Reactions Criticality Noted Date Comments Amitriptyline Other (see comments),Rash 02/24/2015 Increased depression Increased depression Omeprazole Hives (Reselect Reaction) 03/09/2009 Rabeprazole Hives (Reselect Reaction) 03/03/2009 (Aciphex) Ranitidine Hives (Reselect Reaction) 03/01/2015 Ranitidine Hcl Hives (Reselect Reaction) 03/14/2010 Medications Medication Sig Dispensed Refills Start Date End Date Status acetaminophen (TYLENOL) 500 mg tablet Take 1,000 mg by mouth. 04/14/2020 Active sertraline (ZOLOFT) 50 mg tablet Take 1 tablet (50 mg total) by mouth daily. 90 tablet 3 07/07/2022 Active ikeopjz-Mq-nfbr-FA (VINATE ONE) 60 mg iron-1 mg per tablet Take 2 tablets by mouth daily. Active aspirin [address] tablet Take 1 tablet (81 mg total) by mouth daily. 30 tablet 6 01/15/2023 Active Active Problems Problem Noted Date Diagnosed Date Morbid Obesity Body Mass Index 45.0-49.9 Adult 1 Encounter For Supervision Of Normal Unspecified Trimester 11/21/2022 Overview (01/15/2023): Dating: LMP c/w 8 wk US FOB: Blood type: O+ Carrier/aneuploidy screening: declines Rubella immune Influenza vaccine: 01/15 Pap Done @ [facility]: 11/2022 NILM, neg HPV anatomy scan: Needs advanced level OGTT: Early A1C-->5.2 Hb at 28 weeks: Tdap: GBS: PPBC: Next visit: anatomy scan Issues: Obesity (prepregnancy BMI 46): Discussed advanced level US with MFM. Early HbA1c WNL Depression: Stable on Zoloft 50 mg daily Subchorionic hemorrhage noted on dating US 1.95 cm Hx SAB 03/27/2022 COVID infection in early (3-4 weeks gestation): afebrile, symptoms were nasal congestion and sore throat. Recommended patient start LDASA at 16w visit. COVID-19 Infection 11/21/2019 Overview (11/21/2022): Had infection early in in 2019 Had afebrile confirmed positive COVID-19 infection in October 2022 (3-4 weeks ). Symptoms were nasal congestion and sore throat Pain Generalized Abdominal 05/15/2018 Migraine Headache 05/15/2018 Depression Major Recurrent Moderate 12/10/2014 Overview (06/27/2016): Depression Major Recurrent Moderate Constipation 12/10/2014 Plantar Fascia Syndrome 09/04/2014 Dysmenorrhea 02/25/2008 Estimated Date of Delivery Comme nts Yes 07/02/2023 Based on last me nstrual period of 09/25/2022 Resolved Problems Problem Noted Date Diagnosed Date Resolved Date Delivery Vaginal Normal Spontaneous 04/12/202006/1611/21/2022 Morbid Obesity Body Mass Ind ex Greater Than Or Equal To 40 Adult 08/21/2014 09/21/2017 Overview (06/27/2016): Morbid Obesity Body Mass Index (BMI) >40 Adult Counseling Contraceptive Management 02/08/2010 09/11/2019 Immunizations Name Administration Dates Next Due 4vHPV (discontinued) 07/03/2007,03/05/2007,12/20 DTP 06/23/1993,01/31/1993 HepA Adult 03/05/2007,02/24/2007 HepA Pediatric/Adolescent 12/26/2007 HepA, Unspecified 03/05/2007 Hib, Unspecified 06/23/1993 Influenza (IM) Preservative Free 11/11/2008,12/07 Influenza Split 01/05/2003 Influenza, Seasonal, Injectable 12/20/2006 Influenza, Unspecified 11/10/2015,2014,11/06/2012,2009 MCV4 (Menactra)(Discontinued) 02/01/2009, 008 MCV4, Unspecified 02/01/2009,07/03/2007 MMR 01/05/2003 MMRV 01/05/2003 OPV 06/23/1993,01/31/1993 Td Preservative Free (TENIVA C, DECAVAC) 05/30/2005 Tdap 03/08/2020,10/18/2011 influenza vaccine quad (FLUZONE/FLUARIX) (6 months and older)(PF) 01/15/2023 Family History Medical History Relation Name Comments Healthy adult Brother Depression Father Chepe santiago Hyperlipidemia Father Chepe asntiago Hypertension Father Chepe santiago Depression Mother cynthia santiago Hypothyroidism Mother cynthia santiago Thyroid disease Mother cynthia santiago Cancer Paternal Grandmother Jack Colon cancer Paternal Grandmother Jack Depression Sister Relation Name Status Comments Brother Father Chepe santiago Mother cynthia santiago Paternal Grandmother Jack Sister Social History Tobacco Use Types Packs/Day Years Used Date Smoking Tobacco: Former Cigarettes 1 - 11/14/2013 Smokeless Tobacco: Never Tobacco Cessation:Counseling Given: Not Answered Alcohol Use Standard Drinks/Week Comments Not Currently 0 (1 standard drink = 0.6 oz pur e alcohol) rarely Humiliation, Afraid, Rape, and Kick questionnair e Answer Date Recorded Within the last year, have y ou been afraid of your partner or ex-partner? No 06/12/2022 Within the last year, have y ou been humiliated or emotionally abused in other ways by your partner or ex-partner? No Within the last year, have y ou been kicked, hit, slapped, or otherwise physically hurt by your partner or ex-partner? No 06/12/2022 Within the last year, have y ou been raped or forced to have any kind of sexual activity by your partner or ex-partner? No 06/12/2022 Social Connection and Isolat ion Panel [NHANES] Answer Date Recorded In a typical week, how many times do you talk on the phone with family, friends, or neighbors? More than three times a week 06/12/2022 How often do you get togethe r with friends or relatives? Twice a week 06/12/2022 How often do you attend chur or taoist services? More than 4 times per year 06/12/2022 Do you belong to any clubs o r organizations such as temple groups, unions, fraternal or athletic groups, or school groups? No 06/12/2022 How often do you attend meet ings of the clubs or organizations you belong to? Never 06/12/2022 Are you , , di vorced, , never , or living with a partner? 06/12/2022 AUDIT-C Answer Date Recorded Q1: How often do you have a drink containing alc ohol? Monthly or less 06/12/2022 Q2: How many drinks containi ng alcohol do you have on a typical day when you are drinking? 1 or 2 06/12/2022 Q3: How often do you have si x or more drinks on one occasion? Never 06/12/2022 Overall Financial Resource Strain (CARDIA) Answe r Date Recorded How hard is it for you to pa y for the very basics like food, housing, medical care, and heating? Not very hard 06/12/2022 PHQ-2 Answer Date Recorded PHQ-2 Score 0 11/21/2022 [facility] [place] of Occupat ional Health - Occupational Stress Questionnaire Answer Date Recorded Do you feel stress - tense, restless, nervous, or anxious, or unable to sleep at night because your mind is troubled all the time - these days? Rather much 06/12/2022 Exercise Vital Sign Answer Date Recorde d On average, how many days pe r week do you engage in moderate to strenuous exercise (like a brisk walk)? 2 days 06/12/2022 On average, how many minutes do you engage in exercise at this level? 30 min 06/12/2022 Hunger Vital Sign Answer Date Recorded Within the past 12 months, y ou worried that your food would run out before you got the money to buy more. Never true 06/13/19 Within the past 12 months, t he food you bought just didn't last and you didn't have money to get more. Never true 06/12/2022 PRAPARE - Transportation Answer Date Re corded In the past 12 months, has l ack of transportation kept you from medical appointments or from getting medications? No 09/2022 In the past 12 months, has l ack of transportation kept you from meetings, work, or from getting things needed for daily living? No 06/12/2022 Housing Stability Vital Sign Answer Jame e Recorded In the last 12 months, was t here a time when you were not able to pay the mortgage or rent on time? No 06/12/2022 In the last 12 months, how many places have you lived? 1 06/12/2022 In the last 12 months, was t here a time when you did not have a steady place to sleep or slept in a jail (including now)? No 06/12/2022 Depression Answer Date Recor ded PHQ-9 Total Score (max 27) 6 11/21 Nutrition Answer Date Recorded Nutrition: EVOO Fat Source No 06/12 On average, how many serving s of fruits and vegetables do you eat per day (serving size is equal to 1 cup or approximately the size of a tennis ball)? 0-1 06/12/2022 Dental Answer Date Recorded Dental: Regular Dentist Yes 02/12/19 Employment Answer Date Recorded Employment status Employed and actively working without restrictions 06/12/2022 Education Answer Date Recorded What is the highest level of school you have completed or the highest degree you have received? Associate degree: occupational, technical, or vocational program 2019 Estimated Date of Delivery Comme nts Yes 07/02/2023 Based on last me nstrual period of 09/25/2022 Sex and Gender Information Value Date Recorded Sex Assigned at Female 09/21/2017 10:39 AM CDT Gender Identity Female 09/21/2017 10:39 AM CDT Sexual Orientation Straight 09/21/2017 10 :39 AM CDT Last Filed Vital Signs Vital Sign Reading Time Taken Comments Blood Pressure 119/78 02/15/2023 10:08 AM COLLEGE SPECIALIST Pulse 83 02/15/2023 10:08 AM COLLEGE SPECIALIST Temperature 36.6 ??C (97.8 ??F) 12/27/2022 12:[address] Respiratory Rate 14 02/15/2023 10:08 AM COLLEGE SPECIALIST Oxygen Saturation 99% 09/11/2019 12:04 PM CDT Inhaled Oxygen Concentration - - Weight 148 kg (325 lb 6.4 oz) 02/15/2023 10:08 A M COLLEGE SPECIALIST Height 176.7 cm (5' 9.57) 11/21/2022 10:44 AM C DT Body Mass Index 47.27 11/21/2022 10:44 AM CDT Plan of Treatment Health Maintenance Due Date Last Done Comments Hepatitis B Vaccines (1 of 3 - 19+ 3-dose series) 10/15/2011 COVID-19 Vaccine ( - 2022- season) 2022 Depression Monitoring (PHQ-9) 03/24/2023 11/21/2022 Influenza Vaccine (#1) 2023 , 11/10/2015, 12/10/2014, Additional history exists Cervical Cancer Screening 11/22/20232022, 11/21/2022, 09/11/2019, Additional history exists DTaP,Tdap,and Td Vaccines (7 - Td or Tdap) 04/08/2033 04/09/2023, 03/08/2020, 10/18/2011, Additional history exists HPV Vaccines Completed 07/03/2007, 02/06, 12/20/2006 HIV Screening Completed 11/21/2022, 05/2022, 09/11/2019, Additional history exists Hepatitis C Screening Completed 11/21/2022, 023 Pneumococcal vaccine (0-64 years) Aged Out No longer eligible based on patient's age to complete this topic RSV vaccine - (32-36 weeks) or 60+ years (No Doses Required) Completed Procedures Procedure Name Priority Date/Time Associated Diagnosis Comments HCV AB SCRN , S Routine 11/21/2022 12:14 PM CDT Encounter For Supervision Of Other Normal Unspecified Trimester (HCC) HIV-1/-2 AG AND AB SCRN, PLASMA Routine 11/21/2022 12:14 PM CDT Encounter For Supervision Of Other Normal Unspecified Trimester (HCC) HPV WITH GENOTYPING, PCR, THINPREP Routine 11/21/2022 11:31 AM CDT from Last 3 Months or Most Recently Relevant to Health Maintenance Results * Hepatitis C Virus Antibody Screen (11/21/2022 12:14 PM CDT) HCV Ab Scrn , S Negative Negative 11/22/2022 8:18 AM CDT [facility] Comment:Whfhpr-sm-vajwcj rat io is <1.00. Blood (Blood, Venous) 11/21/2022 12:14 PM CDT 11/22/2022 7:11 AM CDT Rosi Juárez CNM, D.N.P. LAB MICROBIOL OGY - BLOOD ORDERABLES [facility] [address] [place] [address] [facility] [address] [place] [address] * HIV-1/-2 Ag and Ab Scrn, Plasma (11/21/2022 12:14 PM CDT) HIV Ag/Ab Scrn, P Negative Negative 11/21/2022 8:30 PM CDT [facility] Comment: Negative result does not rule out HIV infection. If exposure to HIV infection occurred <14 days ago, contact the laboratory to request addition of HIV-1/HIV-2 RNA detection , Plasma (HPP12). HIV-1 p24 Ag Scrn, P Negative Negative 11/21/2022 8:30 PM CDT [facility] Comment: Negative result does not rule out HIV infection. If exposure to HIV infection occurred <14 days ago, contact the laboratory to request addition of HIV-1/HIV-2 RNA detection , Plasma (HPP12). HIV-1 Ab Scrn, P Negative Negative 11/21/2022 8:30 PM CDT [facility] Comment: Negative result does not rule out HIV infection. If exposure to HIV infection occurred <14 days ago, contact the laboratory to request addition of HIV-1/HIV-2 RNA detection , Plasma (HPP12). HIV-2 Ab Scrn, P Negative Negative 11/21/2022 8:30 PM CDT [facility] Comment: Negative result does not rule out HIV infection. If exposure to HIV infection occurred <14 days ago, contact the laboratory to request addition of HIV-1/HIV-2 RNA detection , Plasma (HPP12). Blood (Blood, Venous) 11/21/2022 12:14 PM CDT 11/21/2022 6:58 PM CDT Rosi Juárez CNM, D.N.P. LAB MICROBIOL OGY - BLOOD ORDERABLES [facility] [address] [place] [id number], [facility] [place] [address] * HPV with Genotyping, PCR, ThinPrep (11/21/2022 11:31 AM CDT) HPV with Genotyping, ThinPrep, PCR Negative Negative 11/22/2022 5:55 PM CDT TO Comment: Negative for high risk HPV by nucleic acid amplification. ??The following high risk HPV types were not detected: 16, 18, 31, 33, 35, 39, 45, 51, 52, 56, 58, 59, 66, and 68 This result does not rule out HPV in the patient, as the sensitivity of the test depends on the timing of the specimen collection and the quality of the specimen. Result should be correlated with patient's history, clinical presentation, and APRON WORKER cytology report. 11/21/2022 11:3 1 AM CDT 11/22/2022 6:33 AM CDT Rosi Juárez CNM, D.N.P. LAB MICROBIOL OGY - GENERAL ORDERABLES [facility] [address] [place] [address], [place] [facility] [address] [facility] [address] [place] [address] from Last 3 Months or Most Recently Relevant to Health Maintenance Care Teams Real Estate Marketing Coordinator Relationship Specialty Start Date End Date Rosi Sheth APRN, C.N.P. [address] [place] [address] PCP - General 04/22/20
--- OUTSIDE RECORDS SUMMARY | 2023-09-06 21:40 | XMS_ITS | Referral Summary ---
Author Organization [facility] Address [address] [place] [address] Care Team Providers Care Industrial Specialist Name Role Phone Rosi Sheth APRN C.N.PGriselda Primary Care Provi danis Source Comments Patient records contain information from all sites at [facility]. For routine questions regarding patient records, call [phone] during business hours, M-F 8:00 AM - 5:00 PM Central Time. Record requests for emergency care only can be directed to [phone] at any time.[facility] Allergies Active Allergy Reactions Criticality Noted [...] mouth daily. 90 tablet 3 07/07/2022 Active mrdirfd-Hm-vpjg-FA (VINATE ONE) 60 mg iron-1 mg per [...] quad (FLUZONE/FLUARIX) (6 months and older)(PF) 01/15/2023 Social History Tobacco Use Types Packs/Day Years [...] week 06/12/2022 How often do you attend [facility] or lutheran services? More than 4 times per year 06/12/2022 Do you belong to any clubs o r organizations such as yazdanism groups, unions, fraternal or athletic groups, or [...] Answer Date Recorded PHQ-2 Score 0 11/21/2022 [facility] of Occupat ional Health - Occupational Stress [...] place to sleep or slept in a assisted (including now)? No 06/12/2022 Depression Answer Date [...] Comments Blood Pressure 119/78 02/15/2023 10:08 AM PERISHABLE FRUIT INSPECTOR Pulse 83 02/15/2023 10:08 AM PERISHABLE FRUIT INSPECTOR Temperature 36.6 ??C (97.8 ??F) 12/27/2022 12:[address] Respiratory Rate 14 02/15/2023 10:08 AM PERISHABLE FRUIT INSPECTOR Oxygen Saturation 99% 09/11/2019 12:04 PM CDT Inhaled Oxygen Concentration - - Weight 148 kg (325 lb 6.4 oz) 02/15/2023 10:08 A M PERISHABLE FRUIT INSPECTOR Height 176.7 cm (5' 9.57) 11/21/2022 10:44 AM C DT Body Mass Index 47.27 11/21/2022 10:44 AM CDT Plan of Treatment Not on file Procedures Procedure Name Priority Date/Time Associated Diagnosis [...] S Negative Negative 11/22/2022 8:18 AM CDT [facility] Comment:Mctpkg-to-eblyxp rat io is <1.00. Blood (Blood, Venous) 11/21/2022 12:14 PM CDT 11/22/2022 7:11 AM CDT Rosi Juárez CNM, D.N.P. LAB MICROBIOL OGY - BLOOD ORDERABLES [facility] [address] [place] [address] [facility] [address] [place] [address] * HIV-1/-2 Ag and Ab Scrn, Plasma [...] 12:14 PM CDT 11/21/2022 6:58 PM CDT Rsoi Juárez CNM, D.N.P. LAB MICROBIOL OGY - BLOOD ORDERABLES [facility] [address] [place] [address], [facility] in [address] [address] * HPV with Genotyping, PCR, ThinPrep (11/21/2022 11:31 AM CDT) HPV with Genotyping, ThinPrep, PCR Negative Negative 11/22/2022 5:55 PM CDT [facility] Comment: Negative for high risk HPV by [...] correlated with patient's history, clinical presentation, and EDITOR GREETING CARD cytology report. 11/21/2022 11:3 1 AM CDT 11/22/2022 6:33 AM CDT Rosi Juárez CNM, D.N.P. LAB MICROBIOL OGY - GENERAL ORDERABLES [facility] [address] [place] [address], [facility] [address] [place] [id number] from Last 3 Months or Most Recently Relevant to Health Maintenance Care Teams Industrial Specialist Relationship Specialty Start Date End Date Rosi Sheth APRN, C.N.P. [address] [place] [address] PCP - General 04/22/20
--- OUTSIDE RECORDS SUMMARY | 2023-09-06 21:40 | XMS_ITS ---
Author Organization [facility] Address [address] [place] [address] Care Team Providers Care Bonding Equipment Operator Name Role Phone Unavailable Unavailable Unavailable Surgery Details Not on file Complications Check Surgery Details section. Procedure Estimated Blood Loss Check Surgery Details section. Procedure Findings Check Surgery Details section. Procedure Specimens Taken Check Surgery Details section.
[2023-09-06 21:43] LABS: Chloride* 103 mmol/L (96-114); Sodium* 139 mmol/L (135-149)
[2023-09-06 21:46] LABS: Creatinine* 0.6 mg/dL (0.5-1.5); Est. Creatinine Clearance* 148.26; Estimated Glomerular Filt Rate 124 ml/min
[2023-09-06 21:47] LABS: Anion Gap 6 mEq/L (7-15); Blood Urea Nitrogen* 16 mg/dL (5-24); Calcium* 9.3 mg/dL (8.4-10.6); Carbon Dioxide* 30 mmol/L (20-32); Glucose* 89 mg/dL (60-115)
[2023-09-06 22:02] VITALS: BP 132/78; PULSE 76; RESP 16; O2SAT 100
== END 2023-09-06 22:11 | disposition home or self-care (01) ==
PROVIDERS: Emergency Provider Family Medicine; PCP Family Medicine
DX: O72.1 Other immediate postpartum hemorrhage (principal)
CPT/HCPCS: 36415; 80048; 85025; 99282; 99283

== ENCOUNTER 2024-12-07 18:33 | Inpatient (IN) | payer BC, SELFPAY ==
[2024-12-07 18:44] VITALS: BMI 46.7
[2024-12-07 19:15] VITALS: BP 122/74; PULSE 85; RESP 18; TEMP 36.9
--- NOTE | 2024-12-07 19:57 | PM.OBHPLI ---
OB - H&P: HPI Labor/Induction History of Present Illness Date Seen: 12/07/24 Chief Complaint: The patient is a 34 year old 4 para 2011 at 40 weeks gestation by LMP and consistent with 12 week US, who presents for IOL for maternal obesity. Chief complaint: IOL/Continued Narrative: Marissa Landry is a 34 year old at 40 weeks by LMP and c/w 12 week US here for IOL for maternal obesity. has been otherwise uncomplicated. She reports active movement, no contractions, no LOF. Last growth US at 34 weeks showed EFW at 2236g (20%), weekly BPPs have all been reassuring with 09/12. Incidentally found bilateral dilated renal pelvis on 38 week BPP, will plan for renal US after . Patient has had anesthesia, MFM and balancing machine operator consultations for BMI>45. History of Present Dating criteria: based on LMP care: good care Ultrasounds: normal mid trimester US and abnormal US findings (bilateral dilated renal pelvis) Labs Blood type: O (+) positive Rubella: immune RPR/VDLR: nonreactive GBS status: negative HBsAG: negative Review of Systems Status of ROS: Reports: 6 or more systems reviewed and unremarkable except as noted in History and below Meds Home Medications and Allergies Allergies Allergy/AdvReac Type Severity Reaction Status Date / Time azithromycin Allergy Intermediate Hives Verified 12/07/24 19:29 rabeprazole Allergy Intermediate Hives Verified 12/07/24 19:29 ranitidine (From Zantac) Allergy Intermediate Hives Verified 12/07/24 19:29 amitriptyline AdvReac Verified 12/07/24 19:29 OB - H&P: Exam Physical Exam: Vital signs: Temp Pulse Resp BP 98.4 F 85 18 122/74 12/07/24 19:15 12/07/24 19:15 12/07/24 19:15 12/07/24 19:15 Constitutional: Constitutional: no acute distress Routine HEENT Exam: Head: Present atraumatic and normal inspection Eye: Present EOMI and normal appearance ENT: Present mucous membranes moist Routine Neck Exam: Neck: Present full ROM Routine Respiratory Exam: Respiratory: Present CTA bilaterally Routine Cardiovascular Exam: Cardiovascular: RRR Detailed Labor and Delivery Exam: Patient Gravid: yes Dilation (cm): 1 Effacement (%): 40 Cervix position: anterior Consistency: firm Cervical ripeness score: 4 Fetus (Single): Station: -3 Amniotic Membrane Status: intact Heart Rate Baseline: 140 Monitor Accelerations: Present Monitor Decelerations: None Residential Variability: Moderate (6-25) Routine Back/Spine/Pelvis Exam: Back/Spine: full ROM Routine Skin Exam: Present intact Routine Neurological Exam: Present alert, oriented X3 and CN II-XII intact Routine Psychiatric Exam: Present normal affect OB - Problem Based A/P Additional Plan (1) Term : Status: Acute (2) Obesity: Status: Acute Plan Recommend cytotec for cervical ripening overnight. Pitocin and/or AROM in AM once cervix more favorable. Patient desires no analgesia for labor. Anticipate . Delivery/Labor/Induction Plan Plan: induction Induction method: per misoprostol protocol
[2024-12-07 20:24] LABS: Hematocrit* 38.3 % (33.0-51.0); Hemoglobin* 12.6 gm/dL (12.0-16.0); Immature Granulocytes Pct Auto 0.3 %; Mean Corpuscular HGB Conc 33 gm/dL (32-36); Mean Corpuscular Hemoglobin 31 pg (26-34); Mean Corpuscular Volume 96 fL (80-100); RDW Coefficient of Variation % 12.9 % (11.5-15.5); Red Blood Count* 4.01 m/uL (4.00-5.20); White Blood Count* 11.64 K/uL (4.50-11.00)
[2024-12-07 20:27] LABS: Immature Granulocytes Abs Auto 0.00 K/uL (0.00-0.30); Lymphocytes Absolute Auto 3.40 K/uL (0.90-2.90); Slide Review Reflex No
[2024-12-07 23:03] VITALS: BP 131/73; PULSE 68; RESP 18; TEMP 36.7
[2024-12-08] VITALS (25 sets, daily range): BP systolic 109–143; BP diastolic 56–89; PULSE 66–88; RESP 12–18; TEMP 36.6–36.9; O2SAT 98
--- NOTE | 2024-12-08 11:50 | PM.OBPNL ---
Subjective Date Seen: 12/08/24 Narrative: Marissa is a at 40+1 weeks here for IOL for maternal obesity. She has had 5 doses of cytotec PV since arrival last evening. She is intermittently feeling some contractions/cramping, but nothing significant. Cervix has changed from 1/40/-3 to 3/50/-3. she underwent AROM with return of small blood tinged fluid. Objective Vital Signs: Last Vital Signs Temp 98.3 F 12/08/24 11:10 Pulse 72 12/08/24 09:08 Resp 12 12/08/24 09:08 BP 131/60 12/08/24 09:08 Pelvic Exam Dilation (cm): 4 Effacement (%): 50 Station: -3 Contractions Monitor mode: External Contraction pattern: Irregular Contraction intensity: Mild Assessment Assessment: induction ongoing Station: -3 Amniotic Membrane Status: AROM Status: Category ll Heart Rate Baseline: 140 Juice Tester Variability: Moderate (6-25) Monitor Accelerations: Present Monitor Decelerations: Variable Plan Plan: Patient now with more favorable cervix, underwent AROM and will continue to monitor. If contractions do not increase in intensity & frequency, will start pitocin.
--- NOTE | 2024-12-08 16:39 | P.OBPN_ITS ---
Subjective Date Seen: 12/08/24 Narrative: Marissa is a at 40+1 admitted overnight for IOL for obesity. She had cytotec x5 doses and then underwent AROM around 1130. Contractions throughout the afternoon have mostly been mild, but now becoming stronger and more regular Objective Vital Signs: Last Vital Signs Temp 98.3 F 12/08/24 15:54 Pulse 82 12/08/24 14:02 Resp 12 12/08/24 14:02 BP 134/75 12/08/24 14:02 Pelvic Exam Dilation (cm): 5 Effacement (%): 90 Station: -2 Contractions Monitor mode: External Contraction Frequency: 2-4 Contraction pattern: Irregular Contraction intensity: Mild Assessment Assessment: induction ongoing Station: -2 Amniotic Membrane Status: AROM Status: Category ll Heart Rate Baseline: 130 Intermediate Variability: Moderate (6-25) Monitor Accelerations: Present Monitor Decelerations: None Plan Plan: Patient is now becoming more uncomfortable with contractions, as long as making progress, will continue expectant management. If not making progress, will plan to start pitocin. Patient plans to use nitrous for analgesia. Anticipate .
--- NOTE | 2024-12-08 20:00 | W.PM.VAGD1_ITS ---
Procedure Delivery date: 12/08/24 Procedure Done: Global Delivery augmentation: rupture of membranes Delivery monitor: external uterine and internal FHT Route of delivery: Laceration description: None Estimated blood loss (mL): 50 Anesthesia type: None Disposition: floor Narrative: The patient is a 34 year-old G4 P 2012 admitted on 12/07/2024 at 40 Weeks, 0 Days gestation for IOL for maternal obesity.? Cervical exam on admission was 1 cm/40 % effaced/-3 station with membranes intact in vertex presentation.? Contractions were rare.? heart rate demonstrated baseline 140 bpm with moderate variability, + accelerations, - decelerations; a category 1 tracing.?She received 5 doses of cytotec until she underwent AROM at 1143 with clear fluid. She had mid contractions until 1623 when they started increasing in intensity ? Labor Analgesia:? none ? Pitocin:? yes ? Labor onset:? 1622 ? Complete:? 1919 ? Pushing:? 1919 ? heart tones during second stage were category 2. ? At 1934 a viable male infant delivered in vertex OA presentation over intact perineum via spontaneous vaginal delivery.? was placed on maternal abdomen.? Cord was clamped and cut after a 30-60 second delay.? Nose and mouth were bulb suctioned.? weight pending.? 8 at 1 minute and 9 at 5 minutes.? Shoulder dystocia: no.? Nuchal cord: yes x2. ? Placenta delivered spontaneously and complete at 1944 with a 3 vessel cord. ? Mother and infant were stable after delivery. ? Lacerations:? none. ? Blood loss: 50 mL. Blood loss measurement type: QBL ? Sponge and needles counts are correct. [place] Infant Gender: Male presentation: vertex Placental Delivery Description: Spontaneous Cord Description: 3 Vessels and Nuchal Cord (x2)
[2024-12-09] MEDS: ACETAMINOPHEN 500 MG TABLET 1000 MG PO ×2 (00:11→12:37)
[2024-12-09 04:40] VITALS: BP 122/74; PULSE 77; RESP 16; TEMP 36.6; O2SAT 98
[2024-12-09 05:23] LABS: Hemoglobin* 12.8 gm/dL (12.0-16.0)
[2024-12-09] MEDS: DOCUSATE SODIUM 100 MG CAPSULE PO (09:06)
[2024-12-09] MEDS: IBUPROFEN 600 MG TABLET PO ×2 (09:06→20:02)
[2024-12-09 09:07] VITALS: BP 108/74; PULSE 75; RESP 17; TEMP 36.6; O2SAT 98
--- NOTE | 2024-12-09 10:21 | P.OBPN_ITS ---
OB - PN:Subj Subjective Date Seen: 12/09/24 Interval history: No acute events overnight. RN notes reviewed. Patient feeling well without concerns. Patient comments OB post-: no complaints and pain well controlled [place] infant status: and doing well feeding status: breast and bottle feeding OB - PN: Obj Exam Physical Exam: Vital signs: Temp Pulse Resp BP Pulse Ox O2 Del Method 97.8 F 75 17 108/74 98 Room Air 12/09/24 09:07 12/09/24 09:07 12/09/24 09:07 12/09/24 09:07 12/09/24 09:07 12/09/24 09:07 Constitutional: Constitutional: no acute distress Routine HEENT Exam: Head: Present normocephalic Eye: Present normal appearance Routine Respiratory Exam: Comments: no respiratory distress Routine Neurological Exam: Neurological: Present alert Routine Psychiatric Exam: Psychiatric: Present normal affect OB - PN: Obj Data Labs Labs: Laboratory Results - last 24 hr 12/09/24 05:14 Hgb 12.8 OB - PN: A/P Delivery Assessment and Plan (1) Term : Status: Acute (2) Obesity: Status: Acute Plan Marissa Landry is a 34 year old s/p induced vaginal delivery at 40 weeks and 1 day on 12/08/24 at 1934. Induction indications include BMI >45. Pre gnancy complicated by anxiety and depression. Labor course notable for single elevated blood pressure during a contraction, subsequent BPs wnl. No lacerations noted. Immediate course uncomplication. - continue current cares - QBL 50ml, recheck hgb after delivery 12.8 - encourage ambulation - continue vitamins while breast feeding Anticipate discharge 12/10/24 pending routine course.
[2024-12-09 12:00] VITALS: BP 116/81; PULSE 66; RESP 18; TEMP 36.6; O2SAT 98
[2024-12-09 17:00] VITALS: BP 113/79; PULSE 79; RESP 18; O2SAT 98
[2024-12-09 19:52] VITALS: BP 116/78; PULSE 65; RESP 16; TEMP 36.4; O2SAT 99
[2024-12-10 03:46] VITALS: BP 108/73; PULSE 62; RESP 16; TEMP 36.4; O2SAT 97
[2024-12-10] MEDS: ACETAMINOPHEN 500 MG TABLET 1000 MG PO (07:12)
--- NOTE | 2024-12-10 07:48 | PM.OBDSVD1 ---
DS: Providers Provider Time Seen by Provider: 07:48 Date Seen: 12/10/24 Date of admission: 12/07/24 18:33 Primary care physician: Christine Martinez MD Admitting Clinician: Christine Martinez MD Attending Physician on discharge: Kia Torres MD Date of Discharge: 12/10/24 DS: Diagnosis Discharge Diagnosis (1) Status post normal vaginal delivery: Status: Acute Problem details: Delivered at 40w4d; no tears. (2) Term : Status: Acute (3) Obesity: Status: Acute Exam Const: Vital Signs, click to edit/add: Vital Signs - 24 hr 12/09/24 09:07 12/09/24 12:00 12/09/24 17:00 Temperature 97.8 F 97.9 F Pulse Rate [Pulse Oximeter] 75 66 79 Respiratory Rate 17 18 18 Blood Pressure [Ri ght Arm] 108/74 116/81 113/79 Pulse Oximetry 98 98 98 Oxygen Delivery Me thod Room Air Room Air Room Air 12/09/24 19:52 12/10/24 03:46 Temperature 97.5 F L 97.6 F Pulse Rate [Pulse Oximeter] 65 62 Respiratory Rate 16 16 Blood Pressure [Ri ght Arm] 116/78 108/73 Pulse Oximetry 99 97 Oxygen Delivery Me thod Room Air Room Air Documenting provider has reviewed patient's vital signs: yes Common normals: no apparent distress Orientation/consciousness: Yes awake, Yes oriented to person, Yes oriented to place and Yes oriented to time HENMT: Common normals: normocephalic Head and scalp: normocephalic Eye: General eye: normal appearance of both eyes Neck & C-Spine: Common normals: full ROM Resp: Common normals: normal respiratory effort and clear to auscultation bilaterally Auscultation: clear to auscultation bilaterally Cardio: Common normals: S1 normal heart sound and S2 normal heart sound Heart sounds: S1 normal and S2 normal GI: Common normals: soft to palpation Auscultation: normoactive bowel sounds Palpation: soft : Uterus: U/1 and firm (no significant tenderness to uterus) Extremity: Common normals: normal to inspection, full ROM and no pedal edema Neuro: Sensorium/orientation: awake, oriented to person, oriented to place and oriented to time Skin: Common normals: no rashes or lesions noted General skin exam: no rashes or lesions noted OB - DS: Summary Hospital Course Hospital Course: The patient is a 34 year old G 4 P 3 at 40.1 weeks gestation that was admitted to the [facility] on 12/07/24 for IOL for BMI >40. She had an uncomplicated vaginal delivery. She delivered a viable male . She is breast feeding, pumping, finger feeding. the patient has done well. Patient passed 1 clot overnight (just over size of golf ball) but bleeding has been minimal since. She did have some increased cramping this morning, but hasn't had anything for pain since bedtime. Was just given tylenol. On recheck, pain was improved and patient felt ready for discharge. Peripartum Data Infant delivery method: Vaginal Laceration description: None Infant Gender: Male Discharge Plan: Home Status at Discharge Functional status at discharge: independent ambulation Overall status at discharge: patient is back to baseline Time Spent with Patient Time attestation: Total time spent providing and/or coordinating discharge services: Time spent: Less than 30 minutes Discharge Plan Discharge Disposition: Home, Self-Care Date of Admission: 12/07/24 18:33 Attending Provider on Discharge: Kia Torres Primary Care Provider: Christine Martinez Condition: Improved Anticipated Discharge Date/Time: 12/10/24 09:00 Discharge Medications: Continued No Known Home Medications Discharge Orders: Discharge Order (Routine); Ordered 12/10/24 Ordered By: Kia Torres Patient Education: OB Over the Counter Medication Information, OB Vaginal/Breast Feeding Additional Instructions: Please schedule follow up appointment with Dr. Martinez at 6 weeks . Continue vitamins while breast feeding. Call with any concerns. [phone]. Activity Detail: Pelvic rest x 6 weeks. Otherwise activity as tolerated. Discharge Diet: Regular Follow Up Appointments: Christine Martinez MD [Primary Care Provider, Family Practice] Referral Note: 6 weeks Forms: MyHealth Info Instructions Discharge Comments: Please schedule follow up appointment with Dr. Martinez at 6 weeks . Continue vitamins while breast feeding. Call with any concerns. [phone].
[2024-12-10 08:40] VITALS: BP 111/76; PULSE 80; RESP 16; TEMP 36.4; O2SAT 100
[2024-12-10] MEDS: DOCUSATE SODIUM 100 MG CAPSULE PO (08:49)
[2024-12-10] MEDS: IBUPROFEN 600 MG TABLET PO (08:50)
== END 2024-12-10 10:47 | disposition home or self-care (01) | DRG 560 ==
PROVIDERS: Admitting Provider Family Medicine; PCP Family Medicine; Visit Provider Family Medicine
DX: O99.214 Obesity complicating childbirth (principal); E66.9 Obesity, unspecified; O99.344 Other mental disorders complicating childbirth; F41.9 Anxiety disorder, unspecified; F32.A Depression, unspecified; Z37.0 Single live birth; Z3A.40 40 weeks gestation of pregnancy
CPT/HCPCS: 36415; 59200; 85018; 85025; 86592; 86850; 86900; 86901; A9270; J2270; J2590